=== PATIENT | female | born 1985 | race African-American/Black ===

== ENCOUNTER 2019-10-20 15:34 | Emergency (ER) | payer MEDICAID ==
[2019-10-20 16:50] VITALS: BP 151/90
[2019-10-20] MEDS ORDERED: DEXAMETHASONE 4 MG TABLET PO STA (17:43)
[2019-10-20] MEDS ORDERED: ONDA4TAB12 PO (17:46)
[2019-10-20] MEDS ORDERED: OSEL75CA PO (17:46)
--- NOTE | 2019-10-20 17:47 | PHYS DOC ---
Past Medical History Alcohol Use: Occasionally Adult General Chief Complaint Chief Complaint: FLU SYMPTOM HPI HPI Patient is a 33 year old female who presents with fever, body aches, sore throat, runny nose, cough that started yesterday. Patient has been able to drink water at home. Denies loss of appetite. Complete ROS were reviewed and found to be within normal limits, except as documented in the HPI Allergies Allergies Allergies Coded Allergies Type Severity Reaction Last Updated Verified acetaminophen Allergy Unknown anaphylaxis 10/20/19 Yes Physical Exam Physical Exam Constitutional: Well developed, well nourished, no acute distress, non-toxic appearance. [] HENT: Normocephalic, atraumatic, bilateral external ears normal, bilateral tympanic membranes are pearly forrest, oropharynx moist, no oral exudates, nose turbinates are inflamed. Eyes: PERRLA, EOMI, conjunctiva normal, no discharge. [] Neck: Normal range of motion, no tenderness, supple, no stridor. [] Cardiovascular:Heart rate regular rhythm, no murmur [] Lungs & Thorax: Bilateral breath sounds clear to auscultation [] Skin: Warm, dry, no erythema, no rash. [] Neurologic: Alert and oriented X 3, normal motor function, normal sensory function, no focal deficits noted. [] Psychologic: Affect normal, judgement normal, mood normal. [] Current Patient Data Vital Signs Vital Signs Date Time Temp Pulse Resp B/P (MAP) Pulse Ox O2 Delivery O2 Flow Rate FiO2 10/20/19 16:50 100.0 120 18 151/90 (110) 100 Room Air 100.0 EKG EKG [] Radiology/Procedures Radiology/Procedures [] Course & Med Decision Making Course & Med Decision Making Pertinent Labs and Imaging studies reviewed. (See chart for details) The patient appears to have the Flu clinically. Discussed with patient the importance of drinking plenty of fluids. I also discussed the importance of rest. It was discussed with the patient that she is contagious and to stay away from others until it has been a week since the start of her symptoms. Discussed with the patient that she can take Zyrtec per label instructions for runny nose. Also discussed the proper control of fever by rotating Ibuprofen at home. Will give the patient Decadron in the ER for symptom control. Will also prescribe Zofran for nausea. Will also prescribe Tamiflu. Dragon Disclaimer Dragon Disclaimer This electronic medical record was generated, in whole or in part, using a voice recognition dictation system. Departure Departure Impression: Primary Impression: Acute viral syndrome Disposition: 01 HOME, SELF-CARE Condition: STABLE Referrals: NO PCP (PCP) Patient Instructions: Viral Syndrome Additional Instructions: Thank you for visiting [facility]. We appreciate you trusting us with your care. If any additional problems come up don't hesitate to return to visit us. Please follow up with your primary care provider so they can plan additional care if needed and know about the problem that you had. If symptoms worsen come back to the Emergency Department. Any concerning symptoms that start such as chest pain, shortness of air, weakness or numbness on one side of the body, running high fevers or any other concerning symptoms return to the ER. Please fill your medications at any pharmacy and follow the prescription in structions. Please drink plenty of fluids. If unable to keep fluids down please return to ER. As we discussed take Ibuprofen for fever. Please get Mucinex, Flonase, Zyrtec over the counter and take per label instructions for runny nos and congestion. Scripts Oseltamivir Phosphate (TAMIFLU) 75 Mg Capsule 75 MG PO BID for FLU for 5 Days, #10 TAB 0 Refills Prov: KRISTY YEPEZ APRN 10/20/19 Ondansetron (ONDANSETRON ODT) 4 Mg Tab.rapdis 1 TAB PO PRN Q6-8HRS PRN for NAUSEA, #16 TAB Prov: KRISTY YEPEZ APRN 10/20/19 KRISTY YEPEZ APRN Oct 20, 2019 17:46
== END 2019-10-20 18:03 | disposition home or self-care (01) ==
LOC: ER 15:34
DX: B34.9 Viral infection, unspecified (principal); Z88.6 Allergy status to analgesic agent
CPT/HCPCS: 99283